=== PATIENT | female | born 1990 | race Caucasian/White ===

== ENCOUNTER → 2024-06-07 | Outpatient (CLI) | payer OTHER, SELFPAY ==
--- NOTE | 2024-06-07 08:56 | XR_ITS ---
Examination: Knee bilateral, 6 views Technique: Knee AP, lateral, oblique each knee total 6 views Date and time of exam: June 07, 2024 0938 hours INDICATIONS: Bilateral knee pain beginning 5 years ago FINDINGS: Mild to moderate narrowing medial joint space right knee Mild to moderate narrowing medial joint space left knee Early bilateral osteoarthritis patellofemoral joints No fracture or dislocation involving either knee No opaque foreign bodies IMPRESSION: Mild to moderate narrowing medial joint spaces right and left knee
== END | disposition home or self-care (01) ==
LOC: CDIM 08:51
PROVIDERS: PCP Registered Nurse; Referring Provider Registered Nurse; Visit Provider Registered Nurse
DX: M25.862 Other specified joint disorders, left knee (principal); M25.861 Other specified joint disorders, right knee
CPT/HCPCS: 73562